=== PATIENT | female | born 1940 | race Caucasian/White ===

== ENCOUNTER 2018-09-23 11:04 | Emergency (ER) | payer MEDICARE, OTHER ==
[2018-09-23 12:45] VITALS: BP 158/76
--- NOTE | 2018-09-23 13:00 | UC ---
General HPI - HPI Summary HPI Summary: PT C/O A R LOWER DENTAL INFECTION X 3 DAYS. HAS AN APPOINTMENT WITH ORAL SURGEON ON 10/03/18. - History of Current Complaint Chief Complaint: UCDentalProblem Stated Complaint: DENTAL COMPLAINT Time Seen by Provider: 09/23/18 12:53 Hx Obtained From: Patient Onset/Duration: Gradual Onset Timing: Constant Pain Intensity: 6 Associated Signs & Symptoms: Negative: Fever - Allergy/Home Medications Allergies/Adverse Reactions: Allergies Allergy/AdvReac Type Severity Reaction Status Date / Time No Known Allergies Allergy Verified 09/23/18 12:41 Home Medications: Home Medications Acetaminophen TAB* [Tylenol TAB*] 650 mg PO Q4H PRN 09/23/18 [History Confirmed 09/23/18] Losartan TAB* [Cozaar TAB*] 25 mg PO DAILY 09/23/18 [History Confirmed 09/23/18] PMH/Surg Hx/FS Hx/Imm Hx Cardiovascular History: Hypertension - Surgical History Surgical History: Yes Surgery Procedure, Year, and Place: cataracts - Social History Occupation: Retired Alcohol Use: None Substance Use Type: None Smoking Status (MU): Never Smoked Tobacco Review of Systems All Other Systems Reviewed And Are Negative: Yes Constitutional: Positive: Negative Skin: Positive: Negative Eyes: Positive: Negative ENT: Negative: Sore Throat Respiratory: Positive: Negative Cardiovascular: Positive: Negative Gastrointestinal: Positive: Negative Genitourinary: Positive: Negative Motor: Positive: Negative Neurovascular: Positive: Negative Musculoskeletal: Positive: Negative Neurological: Positive: Negative Psychological: Positive: Negative Physical Exam Triage Information Reviewed: Yes Appearance: Well-Appearing Vital Signs: Initial Vital Signs Temp 97.3 F 09/23/18 12:41 Pulse 80 09/23/18 12:41 Resp 18 09/23/18 12:41 BP 158/76 09/23/18 12:41 Pulse Ox 95 09/23/18 12:41 Vital Signs Reviewed: Yes Eyes: Positive: Conjunctiva Clear ENT: Positive: Pharynx normal, TMs normal, Other - No sublingual swelling.. Negative: Nasal congestion, Nasal drainage Dental: Positive: Gross Decay/Caries @ - R lower anterior bicuspid, adjacent gum is indurated and swollen but not fluctuant. Neck: Positive: Supple, Nontender, No Lymphadenopathy Respiratory: Positive: Lungs clear, Normal breath sounds Cardiovascular: Positive: RRR, No Murmur Abdomen Description: Positive: Nontender, No Organomegaly, Soft Bowel Sounds: Positive: Present Musculoskeletal: Positive: ROM Intact Neurological: Positive: Alert Psychological: Positive: Age Appropriate Behavior Skin Exam: Normal Skin: Negative: Rashes Course/Dx - Course Course Of Treatment: area not fluctuant thus no indication for I&D or aspiration at infection site. - Differential Dx - Multi-Symptom Differential Diagnoses: Other - gum infection, dental decay. no concern for ludwigs angina. - Diagnoses Provider Diagnosis: Gum abscess Discharge - Sign-Out/Discharge Documenting (check all that apply): Patient Departure All imaging exams completed and their final reports reviewed: No Studies - Discharge Plan Condition: Stable Disposition: HOME Prescriptions: Amoxicillin PO (*) [Amoxicillin 875 MG (*)] 875 mg PO BID 10 Days #20 tab Patient Education Materials: Dental Abscess (ED) Referrals: Alek Sommer DMD [Doctor of Dental Medicine] - Additional Instructions: FOLLOW UP WITH THE ORAL SURGEON SCHEDULED ON 10/03/18. HAVE A RECHECK IMMEDIATELY FOR ANY WORSENING. - Billing Disposition and Condition Condition: STABLE Disposition: Home - Attestation Statements Provider Attestation: Per institutional requirements, I have reviewed the chart, however, I was not consulted specifically or made aware of this patient by the midlevel provider. I did not personally evaluate, interact with , or disposition this patient.
== END 2018-09-23 13:09 | disposition home or self-care (01) ==
LOC: UCCORT 11:04
DX: K05.219 Aggressive periodontitis, localized, unspecified severity (principal); I10 Essential (primary) hypertension; Z79.899 Other long term (current) drug therapy
CPT/HCPCS: 99202; G0463